=== PATIENT | female | born 1945 | race Caucasian/White ===

== ENCOUNTER 2024-08-02 20:18 | Emergency (ER) | payer MEDICARE, SELFPAY ==
--- NOTE | ~2024-08-02 | XR_ITS ---
EXAMINATION: XR chest 1V portable Exam Date/Time: 08/02/2024 23:35 DIRECTOR OF HEAD START HISTORY: AMS Comparison: None. RESULT: Lines, tubes, and devices: Cholecystectomy clips. Intact sternotomy wires. Ostial markers. Right [address] pacer with intact leads. Lungs and pleura: Clear. Cardiomediastinal silhouette: Unremarkable. Other: No acute osseous or upper abdominal finding. IMPRESSION: No acute cardiopulmonary process. Reviewed, dictated and finalized at location K. CTOR OF HEAD START
--- NOTE | ~2024-08-02 | CT_ITS ---
Clinical Indication: Superior vena cava syndrome CT Scan of the Chest with Contrast: Technique: Contiguous sections were acquired throughout the chest after intravenous administration of 100 cc of Omnipaque 350. Dose reduction technique was used on this scan by utilizing automated expos ure control and iterative reconstruction technique. The dose-length product (DLP) was 446.78 mGy-cm. Findings: There is no evidence of any significant mediastinal, hilar or axillary lymphadenopathy. There is no c entral pulmonary embolus. Ascending aorta measures 4.7 cm in diameter. No dissection. There are exten sive atherosclerotic calcifications of the coronary arteries. SVC is widely patent. There are extensi ve collaterals in the upper right chest region, with probable high-grade stenosis versus occlusion at the right subclavian vein... There is no evidence of pleural or pericardial effusion. Probable minimal patchy groundglass opacification the lungs, nonspecific. No pulmonary nodule evident . Images through the upper abdomen reveal no abnormalities. Impression: Focal area of occlusion versus high-grade stenosis at the right subclavian vein, with associated exte nsive collaterals in the right upper chest region. SVC is patent. Consider conventional venography an d/or other endovascular intervention, as indicated. Ascending aortic aneurysm measures 4.7 cm in diameter. Mild patchy groundglass opacity in the lungs, with likely diagnostic considerations including hypoven tilatory change, bronchiolitis, or minimal pulmonary edema. Venous findings discussed with Dr. Catalan the time of this reading. Reviewed, dictated and finalized at [facility]. E EDUCATOR Impression: Focal area of occlusion versus high-grade stenosis at the right subclavian vein , with associated extensive collaterals in the right upper chest region. SVC is patent. Consider conventional venography and/or other endovascular interventio n, as indicated. Ascending aortic aneurysm measures 4.7 cm in diameter. Mild patchy groundglass opacity in the lungs, with likely diagnostic considerat ions including hypoventilatory change, bronchiolitis, or minimal pulmonary tashia a. Venous findings discussed with Dr. Catalan the time of this reading.
--- NOTE | ~2024-08-02 | XR_ITS ---
EXAM: XR shoulder LT min 2V DATE: 08/02/2024 23:43 HISTORY: pain . COMPARISON: None available. FINDINGS: Decreased mineralization. No fracture or dislocation. No lytic or blastic lesion. Mild deg enerative changes in the AC joint and glenohumeral joint. No erosion or periosteal change. Soft tissu es within normal limits. IMPRESSION: No acute osseous finding in the left shoulder. Reviewed, dictated and finalized at location K. COMPRESSOR ENGINEER
--- NOTE | ~2024-08-02 | CT_ITS ---
EXAMINATION: CT brain wo con DATE: 08/02/2024 23:49 INDICATION: AMS . TECHNIQUE: Computed tomography (CT) of the head was performed without intravenous contrast. The mA wa s adjusted according to patient size. Iterative reconstruction technique was employed. The dose-lengt h product was 681.00 mGy-cm. COMPARISON: None. FINDINGS: No acute intracranial hemorrhage or extra-axial fluid collection. No hydrocephalus, mass, or herniation. No acute ischemic infarct. Unremarkable dural venous sinus attenuation. No acute osseous abnormality. The aerated spaces are clear. Mild atrophy and moderate chronic white matter change. Atherosclerotic intracranial calcification. Bi lateral lens replacements. Left basal ganglia calcifications. IMPRESSION: No acute intracranial process. Reviewed, dictated and finalized at location K. TROCARDIOGRAM TECHNICIAN
[2024-08-02 20:09] VITALS: BP 117/73; PULSE 74; RESP 15; TEMP 36.6; O2SAT 95
--- NOTE | 2024-08-02 22:45 | ED.AMS ---
HPI - Altered Mental Status General Chief Complaint: Anxiety Stated Complaint: agitation Time Seen by Provider: 08/02/24 22:36 Source: patient and family (daughter) Limitations: clinical condition History of Present Illness HPI narrative: Patient presents with her daughter. Daughter is concerned because patient has been more agitated recently. She seemed to be angry at other residents and had been yelling including yelling for help but without able to identify in what way. Patient's daughter states that normally her mother is fairly calm. Patient has no complaints. She denies any pain such as headache, chest pain, abdominal pain, or extremity pain however she had yelled earlier when her left shoulder had been manipulated. No report of nausea, vomiting, or diarrhea. daughter states normally she is alert and oriented x4 but she seems to not be able to find the words to be able to speak. Has noted that at baseline she has intermittent left hand and arm swelling. She has been having decreased p.o. intake. No diagnosis of Alzheimer's /dementia. Related Data Home Medications ?Medication ?Instructions ?Recorded ?Confirmed ?Last Taken ?Type levothyroxine 75 mcg tablet 75 mcg PO DAILY 07/06/24 08/03/24 Unknown History Allergies Allergy/AdvReac Type Severity Reaction Status Date / Time ibuprofen Allergy Rash Verified 08/02/24 23:27 morphine Allergy Chest Pain Verified 08/02/24 23:27 [facility] Past Medical History Medical History (Updated 08/04/24 @ 10:32 by Cathy Catalan MD) COPD (chronic obstructive pulmonary disease) Pacemaker CHF (congestive heart failure) History of recurrent UTIs History of CVA (cerebrovascular accident) last one March 2023; L sided deficits Social History Social History (Updated 08/04/24 @ 10:28 by Cathy Catalan MD) Smoking status: Former smoker Substance use type: does not use Additional living arrangements comments: [facility] Emergency Department Exam Narrative: GENERAL: Well-appearing, well-nourished, and in no acute distress. HEAD: Normocephalic, atraumatic. EYES: Non injected, non icteric ENT: Nares clear, no rhinorrhea or epistaxis. Dry mucous membranes. NECK: Supple. CHEST: No respiratory distress. Lungs clear to auscultation bilaterally. Dilated veins along upper chest. no appreciable wheezes or crackles. HEART: Regular rate and rhythm. ABDOMEN: Protuberant but Soft, nondistended. EXTREMITIES: No lower extremity edema. Left arm with some edema throughout. Left shoulder tender to palpation of shoulder girdle throughout. SKIN: Warm, dry, no rash. NEURO: left-sided deficits (old). Alert and oriented to self and able to answer simple yes/no questions but not give health history. PSYCH: Normal mood and affect. Course Vital Signs Vital signs: Vital Signs Temperature 97.8 F 08/02/24 20:09 Pulse Rate 74 08/02/24 20:09 Respiratory Rate 15 08/02/24 20:09 Blood Pressure 117/73 08/02/24 20:09 Pulse Oximetry 95 08/02/24 20:09 Oxygen Delivery Room Air 08/02/24 20:09 Temperature 97.8 F 08/02/24 20:09 Pulse Rate 70 08/03/24 03:22 Respiratory Rate 17 08/03/24 03:22 Blood Pressure 156/56 H 08/03/24 03:22 Pulse Oximetry 98 08/03/24 03:22 Oxygen Delivery Room Air 08/02/24 20:09 MDM - Altered Mental Status MDM Narrative Medical decision making narrative: Patient presents with report of behavior change/ agitation as she has been yelling and more angry recently where as normally she is calm. In addition she is at baseline alert oriented x4 but seems to not be able to find words to speak lately and has had decreased p.o. intake. No diagnosis of dementia/Alzheimers. In the emergency department they are afebrile with vital signs within normal limits. Hyperglycemia without anion gap acidosis. Workup does show evidence of urinary tract infection. Per patient given 1st dose of antibiotic in the emergency department the rest of the course will be prescribed. Imaging negative for acute process. Patient discharged back to facility in stable condition. == After discharge, Notified by radiologist that although SVC syndrome was not present, there was evidence of Subclavian vein occlusion versus high-grade stenosis on the right. Attempted to notify family. There is no contact information listed for a family member but there is a phone number. A voicemail was left approximately 6:15 a.m. and advised that they call back for this information. Differential Diagnosis Differential diagnosis: Likely altered mental status, delirium, hypoglycemia, hyponatremia, subarachnoid hemorrhage and other ( Considered superior vena cava syndrome given dilated veins on chest, arm swelling, and facial swelling; left shoulder OA/fracture/dislocation; UTI, PNA; acute viral syndrome) Lab Data Attestation: I reviewed the patient's lab results. 08/02/24 23:22 08/02/24 23:22 Labs: Lab Results 08/02/24 08/03/24 Range/Units 23:22 00:17 WBC 8.2 (4.5-10.0) K/mm3 RBC 4.30 (4.2-5.4) M/mm3 Hgb 13.0 (12.0-15.0) g/dL Hct 39.5 (37.0-47.0) % MCV 91.9 (80-100) fl MCH 30.2 (26-34) pg MCHC 32.9 (32-36) g/dl RDW 13.4 (11.5-14.5) % Plt Count 207 (150-375) k/mm3 MPV 10.7 H (7.4-10.4) fl Immature Gran % (Auto) 0.2 (0-0.5) % Neut % (Auto) 69.9 (45.5-73.1) % Lymph % (Auto) 17.1 L (18.3-44.2) % Logan % (Auto) 8.5 (2.6-8.5) % Eos % (Auto) 3.8 (0-4.4) % Baso % (Auto) 0.5 (0.2-1.2) % Lymph # (Auto) 1.40 (0.9-3.2) K/mm3 Logan # (Auto) 0.7 H (0.1-0.6) K/mm3 Eos # (Auto) 0.3 (0-0.3) K/mm3 Baso # (Auto) 0.0 (0.0-0.1) K/mm3 Abs Immat Gran (auto) 0.02 (0.00-0.031) K/mm3 Absolute Neuts (auto) 5.7 (1.3-6.7) K/mm3 Absolute Nucleated RBC 0.000 (0.0-0.012) K/mm3 Nucleated RBC % 0.0 (0.0-0.2) % Sodium 137 (137-145) mmol/L Potassium 3.8 (3.4-5.0) mmol/L Chloride 105 (98-107) mmol/L Carbon Dioxide 26 (22-30) mmol/L Anion Gap 6 (4-12) mmol/L BUN 18 H (7-17) mg/dL Creatinine 0.70 (0.7-1.0) mg/dL Estim Creat Clear Calc Not Reportable Estimated GFR > 60 (59 - ) Glucose 167 H (65-110) mg/dL Calcium 9.7 (8.4-10.2) mg/dL Total Bilirubin 0.7 (0.2-1.3) mg/dL AST 24 (14-36) U/L ALT 17 (6-35) U/L Alkaline Phosphatase 60 (38-126) U/L Total Creatine Kinase 28 L (30-135) U/L Troponin I < 0.012 (0.000-0.034) ng/mL Total Protein 7.0 (6.3-8.2) g/dL Albumin 3.9 (3.5-5.1) g/dL TSH 3.120 (0.465-4.680) uIU/mL Urine Color Dark yellow (Yellow) Urine Appearance Turbid H (Clear) Urine pH 5.5 (5.0-9.0) Ur Specific Sophia 1.036 H (1.001-1.035) Urine Protein 1+ H (Negative) mg/dL Urine Glucose (UA) Negative (Negative) mg/dL Urine Ketones Trace H (Negative) mg/dL Ur Blood (Man) Negative (Negative) Urine Nitrate Positive H (Negative) Urine Bilirubin 1+ H (Negative) Urine Urobilinogen 1.0 (<2.0) mg/dL Add Ur Microanalysis Reviewed Leukocyte Esterase Rfl 1+ H (Negative) TIO/UL Urine RBC 21-50 H (0-2) /hpf Urine WBC 21-50 H (0-3) /hpf Ur Squamous Epith Cells Moderate (Few) /hpf Urine Bacteria 4+ /hpf Urine Casts 3-5 Urine Yeast (Budding) Present H (None) /hpf Salicylates < 1.0 L (2-20) mg/dL Urine Opiates Screen Negative (Negative) Urine Methadone Screen Negative (Negative) Acetaminophen < 10 L (10-30) ug/mL Ur Barbiturates Screen Negative (Negative) Ur Phencyclidine Scrn Negative (Negative) Ur Amphetamine Screen Negative (Negative) U Benzodiazepines Scrn Negative (Negative) Urine Cocaine Screen Negative (Negative) U Cannabinoids Screen Negative (Negative) Ethyl Alcohol < 10 (<10) mg/dL Imaging Data Radiologist's impression: CT Stat Rad Chest with Contrast: impression no acute pulmonary embolism. (Vasculature: Atherosclerotic changes of the aorta) No acute cardiopulmonary process. IMPRESSION: No acute osseous finding in the left shoulder. No acute intracranial process. ECG Data EKG #1: Attestation: I personally reviewed and interpreted this ECG as follows: ECG completion date: 08/02/24 ECG completion time: 23:18 Interpretation: normal sinus rhythm at a rate of 77 beats per minute. [place] interval 169. QRS 158. QT/ QTC 407/439. Possible RBBB given QRS greater [id number]; RSR' M-shaped pattern in V1-V3; though lateral leads (I, aVL, V5-6) are not particularly slurred. poor R-wave progression across the precordial leads. T-wave inversion in lead 3. T-wave inversions also present in V2, V3, and V4. Poor baseline quality limits interpretation. Discharge Plan Discharge Clinical Impression: Agitation, Hyperglycemia, UTI (urinary tract infection), Subclavian vein stenosis Patient Disposition: NH Care Home/Asst Living Condition: Stable Instructions: Antibiotic Form, Urinary Tract Infection in Older Adults (ED) Additional Instructions: patient had evidence of urinary tract infection on urinalysis and this can cause altered mental status/behavior changes/agitation. She received the 1st dose of an IV antibiotic with the rest of the course of an oral antibiotic. Will be notified if, based on the urine culture, this antibiotic regimen needs to be changed to a different drug. Follow-up with primary care physician/ facility medical nurse. Return to the emergency department with any new or worsening symptoms. In addition, there may be a degree of untreated pain that she cannot verbalize especially in her shoulder although there does not appear to be a fracture dislocation. Patient should be offered acetaminophen/Tylenol. It is safe to take maximum 4000 mg per day of this medication. Patient Language: Pashto Prescriptions: New cephalexin 500 mg capsule 500 mg PO Q6H 5 Days Qty: 19 0RF Rx Instructions: received first dose in the ED early 12/11 AM acetaminophen 650 mg tablet extended release 650 mg PO Q8H PRN (Reason: pain) Qty: 30 0RF No Action levothyroxine 75 mcg tablet 75 mcg PO DAILY tramadol 50 mg tablet 50 mg PO TID PRN (Reason: pain) Qty: 90 0RF Follow-up/Referrals: UNKNOWN,DOCTOR [Primary Care Provider] - Stand Alone Forms: Senior Living Discharge Time of Disposition: 04:10
--- NOTE | 2024-08-02 23:03 | ECG_ITS ---
Test Date: 2024-08-02 23:18:48 Measurements Intervals [place] Rate: 77 P: -14 KS: 169 QRS: 44 QRSD: 158 T: -4 QT: 407 QTc: 463 Interpretive Statements SINUS RHYTHM INTRAVENTRICULAR CONDUCTION DELAY [130+ ms QRS DURATION] No previous ECG available for comparison Electronically Signed On 08-03-2024 18:49:09 ANESTHESIOLOGY MEDICAL DOCTOR by Fredi Trevizo
[2024-08-02] MEDS: SODIUM CHLORIDE 0.9% IV 1,000 ML 999 ML IV CONT (23:25)
[2024-08-02 23:37] LABS: Basophils Percent Auto 0.5 % (0.2-1.2); Eosinophils Absolute Auto 0.3 K/mm3 (0-0.3); Eosinophils Percent Auto 3.8 % (0-4.4); Hematocrit 39.5 % (37.0-47.0); Immature Granulocyte Absolute 0.02 K/mm3 (0.00-0.031); Immature Granulocyte Percent A 0.2 % (0-0.5); Lymphocytes Percent Auto 17.1 % (18.3-44.2); Mean Corpuscular HGB Conc 32.9 g/dl (32-36); Mean Corpuscular Hemoglobin 30.2 pg (26-34); Mean Corpuscular Volume 91.9 fl (80-100); Mean Platelet Volume 10.7 fl (7.4-10.4); Monocytes Absolute Auto 0.7 K/mm3 (0.1-0.6); Monocytes Percent Auto 8.5 % (2.6-8.5); Neutrophils Absolute Auto 5.7 K/mm3 (1.3-6.7); Neutrophils Percent Auto 69.9 % (45.5-73.1); Platelet Count Result 207 k/mm3 (150-375); Red Cell Distribution Width 13.4 % (11.5-14.5); White Blood Count 8.2 K/mm3 (4.5-10.0)
[2024-08-02 23:50] LABS: Acetaminophen < 10 ug/mL (10-30); Ethanol < 10 mg/dL (<10); Salicylate < 1.0 mg/dL (2-20)
[2024-08-02 23:57] LABS: Alanine Aminotransferase 17 U/L (6-35); Albumin Level 3.9 g/dL (3.5-5.1); Alkaline Phosphatase 60 U/L (38-126); Anion Gap 6 mmol/L (4-12); Aspartate Amino Transferase 24 U/L (14-36); Bilirubin,Total 0.7 mg/dL (0.2-1.3); Blood Urea Nitrogen 18 mg/dL (7-17); Calcium 9.7 mg/dL (8.4-10.2); Carbon Dioxide 26 mmol/L (22-30); Chloride 105 mmol/L (98-107); Creatine Kinase 28 U/L (30-135); Estimated Glomerular Filt Rate > 60; Glucose 167 mg/dL (65-110); Potassium 3.8 mmol/L (3.4-5.0); Sodium 137 mmol/L (137-145)
[2024-08-03 00:09] LABS: Troponin I < 0.012 ng/mL (0.000-0.034)
[2024-08-03 00:40] LABS: Amphetamine Screen Urine Negative (Negative); Barbiturate Screen Urine Negative (Negative); Benzodiazepines Screen Urine Negative (Negative); Cannabinoid Screen Urine Negative (Negative); Cocaine Screen Urine Negative (Negative); Methadone Screen Urine Negative (Negative); Opiate Screen Urine Negative (Negative); Phencyclidine Screen Urine Negative (Negative)
[2024-08-03 01:00] LABS: Add Urine Microscopic? YES; Appearance Urine Turbid (Clear); Bacteria Urine 4+ /hpf; Bilirubin Urine 1+ (Negative); Blood Urine Negative (Negative); Budding Yeast Urine Present /hpf; Color Urine Dark Yellow (Yellow); Glucose Urine UA Negative (Negative); Ketones Urine Trace mg/dL (Negative); Leukocyte Esterase Ur 1+ LEU/UL (Negative); Need Manual Microscopic Reviewed; Nitrate Urine Positive (Negative); Protein Urine 1+ mg/dL (Negative); RBC Urine 21-50 /hpf (0-2); Specific Grav Ur 1.036 (1.001-1.035); Squamous Epithelial Cell Urine Moderate /hpf (Few); WBC Urine 21-50 /hpf (0-3); pH Urine 5.5 (5.0-9.0)
[2024-08-03 02:30] VITALS: BP 146/61; PULSE 80; RESP 16; O2SAT 98
[2024-08-03 03:22] VITALS: BP 156/56; PULSE 70; RESP 17; O2SAT 98
== END 2024-08-03 05:08 ==
PROVIDERS: Emergency Provider Student in an Organized Health Care Education/Training Program
DX: R45.1 Restlessness and agitation (principal); R73.9 Hyperglycemia, unspecified; N39.0 Urinary tract infection, site not specified; I87.1 Compression of vein; J44.9 Chronic obstructive pulmonary disease, unspecified; I50.9 Heart failure, unspecified; Z95.0 Presence of cardiac pacemaker; Z87.891 Personal history of nicotine dependence
CPT/HCPCS: 36415; 70450; 71045; 71260; 73030; 80053; 80143; 80179; 80307; 81001; 82077; 82550; 84443; 84484; 85025; 87086; 93005; 96361; 96365; 99284; J0696; J7030; Q9967